=== PATIENT | male | born 1940 | race Caucasian/White ===

== ENCOUNTER → 2017-04-21 | Outpatient (CLI) | payer OTHER ==
[~2017-04-21] VITALS: Ht 175.3 cm; Wt 79.4 kg
[~2017-04-21] MED LIST: ASPIRIN81 M2 PO; ATORVASTATIN CA20 MG PO; CARDIOVID PLUS1 EACH PO; CRANBERRY CONC1 EAC1 PO; DESYREL50 MG PO; ENDUR-ACIN500 MG PO; FOLIC ACID 1 MG1 MG PO; FOLIC ACID0.8 MG PO; FOLIC ACID1 MG PO; GARLIC1000 MG PO; KRILL OIL 1,501 EACH PO; KRILL OIL500 MG PO; LIDODERM 5%1 PATC1 TRANSDERM; NEURONTIN 400400 M1 PO; NIACIN 500 MG500 M1 PO; TOPROL XL50 MG PO; TRAMADOL 50 MG50 MG PO; TRAZODONE 150150 M1 PO; TRAZODONE HCL PO; ULTRAM 50MG TAB50 MG PO; VITAMIN D35000 UNI1 PO; VITAMIN D350000 UNIT PO; VITCB500GO PO
--- NOTE | ~2017-04-21 | CATHLAB ---
[facility] [address] [place] [address] INVASIVE PROCEDURE REPORT Name: ISREAL LOVELL Room #: REG [place].#: [id number] Admission: 04/21/17 Attend Phys: Jose Conti Discharge: Date of : 42 Date of Service: Report #: [id number] THIS REPORT FOR: //name// By: D: T: /INF
--- NOTE | ~2017-04-21 | P ---
[facility] [place] [address] PROCEDURE REPORT Name: ISREAL LOVELL Room #: REG [facility]#: [id number] Admission: 04/21/17 Attend Phys: Jose Conti MD Discharge: Date of : 42 Report #: [id number] THIS REPORT FOR: //name// CC: Clem Logan PREOPERATIVE DIAGNOSIS: ICD at [facility]. POSTOPERATIVE DIAGNOSIS: ICD at [facility]. HISTORY: The patient is a 76-year-old whose ICD is at [facility]. ANESTHESIA: The patient underwent MAC anesthesia with no anesthesia related complications. DESCRIPTION OF PROCEDURE: The patient with informed consent. We discussed the details of the procedure including the risks, which include but not limited to bleeding, infection, vascular damage and need for possible lead revision. He understood these risks and was willing to proceed. As such, he was brought to the EP laboratory in fasting and sedated state, prepped and draped in a sterile fashion and received IV antibiotics prior to initiation of procedure. I injected lidocaine at the prior incision site an incision was made. The pocket was opened and the old device was disconnected from the leads tested and found to be functioning normally and the new generator was connected. The pocket was irrigated with vancomycin solution and then closed in 3 layers using 2-0 for the deep layer, 3-0 for the middle layer, 4-0 for the subcuticular layer and surgical glue placed at the outer skin layer. The patient awoke neurologically and hemodynamically intact. No complications and no significant bleeding. The explanted device is a Medtronic ICD. Medtronic model #3840 serial #[id number]. The Medtronic lead was a model #6932, serial #[id number]. The newly implanted device was a [employer] model #[id number], serial #[id number]. The preexisting lead was a Medtronic lead with an R-wave of 7.4 millivolts, pacing impedance of 590 ohms, pacing threshold 0.75 volts at 0.5 milliseconds. The shock impedance of 75 ohms. The device is programmed to the VVI 40 mode. Therapies were per VT and VF therapies were programmed on as well. CONCLUSIONS: 1. Successful ICD generator exchange. 2. Satisfactory biventricular pacing and sensing thresholds. By: [id number] /nt
[2017-04-21 10:52] VITALS: BP 127/69
[2017-04-21 10:53] LABS: ABSOLUTE NEUTROPHILS 4.5 thou/uL (1.4-8.2); BASOPHILS 0.8 % (0.0-2.0); EOSINOPHILS 4.2 % (0.0-3.0); HEMATOCRIT 40.1 % (42.0-52.0); HEMOGLOBIN 13.6 gm/dL (14.0-18.0); LYMPHOCYTES 26.6 % (24.0-44.0); MCH 32.9 pg (26.0-34.0); MCHC 33.8 g/dL (28.0-37.0); MCV 97.3 fL (80.0-100.0); MONOCYTES 7.6 % (1.0-8.0); PLATELET COUNT 172 thou/uL (150-400); POLYS 60.8 % (36.0-66.0); RBC 4.12 mil/uL (4.50-6.00); RDW 13.4 % (10.5-14.5); WBC 7.5 thou/uL (4.0-11.0)
[2017-04-21 10:54] LABS: MANUAL DIFF NO
[2017-04-21 11:01] LABS: CALCIUM 8.7 mg/dL (8.5-10.1); CREATININE 1.1 mg/dL (0.7-1.3)
[2017-04-21 11:07] LABS: ALBUMIN 3.8 g/dL (3.4-5.0); TOTAL BILIRUBIN 0.6 mg/dL (<0.1-1.0); TOTAL PROTEIN 7.4 g/dL (6.4-8.2)
[2017-04-21 11:24] LABS: PROTIME 10.1 Seconds (9.3-11.4)
== END | disposition home or self-care (01) ==
LOC: CATH 09:24
PROVIDERS: Internal Medicine Cardiovascular Disease
DX: Z45.02 Encounter for adjustment and management of automatic implantable cardiac defibrillator (principal); I25.10 Atherosclerotic heart disease of native coronary artery without angina pectoris; E78.5 Hyperlipidemia, unspecified; I42.9 Cardiomyopathy, unspecified; Z95.1 Presence of aortocoronary bypass graft; Z79.899 Other long term (current) drug therapy; Z79.82 Long term (current) use of aspirin; Z98.890 Other specified postprocedural states; Z88.8 Allergy status to other drugs, medicaments and biological substances
CPT/HCPCS: 62110; 62900; 70005